=== PATIENT | male | born 1995 | race Caucasian/White ===

== ENCOUNTER 2022-01-20 14:15 | Outpatient (CLI) | payer OTHER ==
[2022-01-20 14:57] VITALS: BP 131/93
--- NOTE | 2022-01-20 14:57 | SLEEP CARE CONSULTATION ---
Information from patient questionnaire entered by Paul Jones MA. I have reviewed and concur with the information entered by Paul Jones MA. This document represents the service I personally performed and the decisions made by , Camille Marcelo ARNP. History of Present Illness Service Date and Time: 01/20/2022 1415 Reason for Visit: New patient (onset 03/2004, no prior,) Chief Complaint: reports: Unrefreshed sleep, Snoring, Fatigue, Frequent awakenings at night Date of Onset: years Usual bedtime: 1000 pm Time it takes to fall asleep: 30 minutes to 2 hours Snores at night: Yes Observed to quit breathing while asleep: No (no roommate) Number of times waking at night: 2-3 times Reasons for waking at night: reports: Snoring, Other (unknown reason). denies: Choking, Gasping for air Toss, Turn, or Twitch while sleeping: Yes Recalls having dreams: Yes Usually gets out of bed at: 0620; weekends wake up later Feels refreshed in the morning: No Morning headache: Yes (2 x a week; last 1-2 hours w/out meds) Sleepy or fatigued during the day: Yes Ever fallen asleep while driving: No Takes day naps: No Prior sleep studies: No Additional HPI information: I had the pleasure of seeing SHELDON CARLTON today regarding the possibility of him having a sleep disorder. His current complaints are fatigue, snoring, frequent night awakenings and unrefreshed sleep. He states he is not sleeping well, waking up at night and having trouble going back to sleep. He states he can take 30 minutes to 2 hours to fall asleep. He will wake up 2-3 times a night and can take 30 mins to 2 hrs to go back to sleep. His doctor thinks this may be due to depression. 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 Patient is Single and lives in . Have you smoked in the past 12 months: Yes (social only) Cigarettes per day (20/pack): 20 Years of smokin Quit date: 2015 Smoking Pack Years: 2.0 Alcohol use: Yes Alcohol amount and frequency: 1-2 x monthly Caffeine use: Yes Caffeine amount and frequency: 1 -2 week Family History Family history of sleep disordered breathing: No Family Hx Sleep Apnea: Sibling: Snoring Allergies and Home Medications Known drug allergies: No Home medication list reviewed: Yes Allergy and home medication list: Medications: Lexapro 20 mg daily Lidocaine patches for back, as needed Review of Systems Weight gain over past 5 years: 15 Cardiovascular: denies: high blood pressure Gastrointestinal: denies: heartburn Neurological: denies: headaches, head trauma Psychiatric: reports: anxiety, depression Ear/Nose/Throat: reports: wisdom teeth removed. denies: injury to nose, tonsillectomy Musculoskeletal: reports: back pain (from prolonged sitting) Physical Exam Vital signs obtained and entered by: Yue JONES CMA [facility] Blood Pressure: 131/93 (resp 18, pulse 79, right, ) Heart Rate: 89 O2 Saturation: 97 (cloth) Height: 5 ft 8 in Weight: 174 lb (uniform and boots) Body Mass Index: 26.4 BMI Classification: Overweight Neck circumference: 14 (inches) Mouth and throat: narrow oropharynx Soft palate: long Hard palate: arched Uvula: long, edematous Uvula visualization: 50% Mallampati Class II Tongue: enlarged in size with teeth breen on lateral edges Tonsils: 1+ Neck: normal w/o lymphadenopathy or thyromegaly Heart: regular rate and rhythm Lungs: clear bilaterally Impression and Plan 1. Suspected Obstructive Sleep Apnea-Hypopnea Syndrome, as suggested by a history of irregular snoring, morning headache, frequent awakening during the night, unrefreshed sleep, cognitive impairment, and excessive daytime sle epiness. Narrow oropharynx and obesity are common predisposing factors for obstructive sleep apnea-hypopnea syndrome. I recommend proceeding to polysomnography to confirm the diagnosis and to assess severity. If the patient has significant sleep disordered breathing, a manual CPAP titration study will also be performed to find the optimal treatment pressure. I informed the patient of what the sleep studies involve and after some discussion, obtained agreement to proceed. The pathophysiology of obstructive sleep apnea-hypopnea syndrome was discussed with the patient and health risks of cardiovascular and cerebrovascular disease if not treated. Risks of drowsy driving discussed in detail and patient advised to avoid long distance driving and to house mover helper at the first sign of drowsiness. Patient agreed to plan. * Schedule polysomnography * Avoid long distance driving or driving when feeling sleepy. * Avoid alcohol, sedative and muscle relaxant around bedtime. * Attempt to lose weight. * Review instructions provided by trained office staff on how to prepare for the sleep study. * Return for follow-up after sleep study completed. Counseling Topics: Weight loss health impact Visit Type: In Office Time Spent with Patient (minutes): 30 Provider Statement: I spent 100% of the Face to Face Visit with the patient with greater than 50% spent counseling the patient and coordination of care.
== END 2022-01-20 14:16 | disposition home or self-care (01) ==
LOC: SC 14:15
PROVIDERS: ATTEND Nurse Practitioner Family
DX: R06.83 Snoring (principal); G47.8 Other sleep disorders; R53.83 Other fatigue; F32.A Depression, unspecified; E66.3 Overweight; Z68.26 Body mass index [BMI] 26.0-26.9, adult; Z87.891 Personal history of nicotine dependence
CPT/HCPCS: 99203; 99212

== ENCOUNTER 2022-01-26 12:30 | Outpatient (CLI) | payer OTHER | END 2022-01-26 12:31 | disposition home or self-care (01) | LOC: SC 12:30 | PROVIDERS: ATTEND Nurse Practitioner Family | DX: R06.83 Snoring (principal); R53.83 Other fatigue | CPT/HCPCS: 95806 ==

== ENCOUNTER 2022-02-08 15:46 | Outpatient (CLI) | payer OTHER ==
[2022-02-08 16:02] VITALS: BP 127/95
--- NOTE | 2022-02-08 16:02 | SLEEP CARE CONSULTATION ---
Information from patient questionnaire entered by Paul Helton MA. I have reviewed and concur with the information entered by Paul Helton MA. This document represents the service I personally performed and the decisions made by Fozia bragg Caren J, ARNP. History of Present Illness Service Date and Time: 02/08/2022 1546 Initial [place] Sleepiness Scale score: 6 (2021) Current [place] Sleepiness Scale score: 10 (01/2022) Additional HPI information: SHELDON CARLTON returns for follow up and results of the recently performed home sleep study. The patient was informed of the following findings: no significant sleep disordered breathing with an average AHI of 2.3 and matilde oxygen saturation of 90%. I explained the pathophysiology behind obstructive sleep apnea. Patient does not have sleep apnea and was advised how weight gain could increase the risk of developing sleep apnea in the future. Patient counseled not drink alcohol less than 4 hours before bedtime as it can increase snoring and apnea. Patient was cautioned about risks of drowsy driving until sleepiness symptoms resolve. Sleep Study - Results Type of Sleep Study: Home sleep study (F/U HOME STUDY, 01/26/22 [facility],) Prior sleep studies: No Polysomnography/Home Sleep Study results: Physician Impression: The quality of the study is good. The length of the study is adequate (> 240 minutes). Please also see the tabulated and graphic data. 1. No significant sleep disordered breathing, with an AHI of 2.3/hr and matilde SaO2 of 90%. During the study, the patient had 13 apneas (13 obstructive, 0 central, 0 mixed) and 4 hypopneas. The longest episode lasted 61.0 seconds. The few respiratory events occurred more frequently during supine sleep (supine AHI was 3.4 and non-supine, 0.70). Allergies and Home Medications Known drug allergies: No Drug allergies reviewed: Yes Home medication list reviewed: Yes (no changes) Review of Systems Review of systems same as previous: Yes (no changes) Physical Exam Vital signs obtained and entered by: JHONY SOTO Blood Pressure: 127/95 (resp 18, pulse 88, right, ) Heart Rate: 80 O2 Saturation: 98 (cloth) Height: 5 ft 8 in Weight: 170 lb (uniform and boots) Body Mass Index: 25.8 BMI Classification: Overweight Impression and Plan 1. Suspected Obstructive Sleep Apnea-Hypopnea Syndrome, as suggested by a history of loud and irregular snoring, frequent awakening during the night, unrefreshed sleep, cognitive impairment, and excessive daytime sleepiness. Patient completed an HST but based upon his symptoms I recommend proceeding to polysomnography to confirm the diagnosis and to assess severity. I informed the patient of what the sleep studies involve and after some discussion, obtained agreement to proceed. The pathophysiology of obstructive sleep apnea-hypopnea syndrome was discussed with the patient and health risks of cardiovascular and cerebrovascular disease if not treated. Risks of drowsy driving discussed in detail and patient advised to avoid long distance driving and to post form remover at the first sign of drowsiness. Patient agreed to plan. * Schedule polysomnography * Avoid long distance driving or driving when feeling sleepy. * Avoid alcohol, sedative and muscle relaxant around bedtime. * Attempt to lose weight. * Review instructions provided by trained office staff on how to prepare for the sleep study. * Return for follow-up after sleep study completed. Visit Type: In Office Time Spent with Patient (minutes): 20 Provider Statement: I spent 100% of the Face to Face Visit with the patient with greater than 50% spent counseling the patient and coordination of care.
== END 2022-02-08 15:47 | disposition home or self-care (01) ==
LOC: SC 15:46
PROVIDERS: ATTEND Nurse Practitioner Family
DX: R06.83 Snoring (principal); G47.8 Other sleep disorders; G47.00 Insomnia, unspecified; R53.83 Other fatigue; F32.A Depression, unspecified; E66.3 Overweight; Z68.25 Body mass index [BMI] 25.0-25.9, adult
CPT/HCPCS: 99212; 99213

== ENCOUNTER 2022-02-20 19:46 | Outpatient (CLI) | payer OTHER | END 2022-02-20 19:47 | disposition home or self-care (01) | LOC: SC 19:46 | PROVIDERS: ATTEND Nurse Practitioner Family | DX: G47.8 Other sleep disorders (principal); G47.61 Periodic limb movement disorder | CPT/HCPCS: 95810 ==

== ENCOUNTER 2022-03-31 11:19 | Outpatient (CLI) | payer OTHER ==
[2022-03-31 12:03] VITALS: BP 128/89
--- NOTE | 2022-03-31 12:03 | SLEEP CARE CONSULTATION ---
Information from patient questionnaire entered by Paul Helton MA. I have reviewed and concur with the information entered by Paul Helton MA. This document represents the service I personally performed and the decisions made by , Camille Marcelo ARNP. History of Present Illness Service Date and Time: 03/31/2022 1119 Initial [place] Sleepiness Scale score: 6 (2021) Current [place] Sleepiness Scale score: 14 (03/31/22) Additional HPI information: SHELDON CARLTON returns for follow up and results of the recently performed polysomnography. I explained the pathophysiology behind obstructive sleep apnea. We then spent quite a bit of time discussing different treatment options. For mild obstructive sleep apnea, surgery and oral appliance are alternatives to nasal CPAP therapy but in moderate or severe cases, nasal CPAP is the most effective and reliable treatment. After some discussion, the patient opted to go with the nasal CPAP therapy. Nasal autoCPAP set at 4-15 cmH20 will be ordered with rationale explained. A manual titration study will be ordered if unable to find optimal pressure with office adjustments. I explained how CPAP machine works and what to expect when using the machine. Using CPAP every night in order to get used to it was emphasized. Patient advised to put CPAP mask on before getting into bed so as not to fall asleep without CPAP. To assist acclimation to CPAP use, it could also be used for a short time during day while reading or watching TV. The patient was instructed to call the CPAP supplier to discuss any mechanical problem that may occur. If the mask given is uncomfortable or is difficult to keep on through the night even with adjustment, contact the CPAP supplier as many will replace with another mask style if notified before 30 days. If snoring or perceives is not getting enough air or too much air from the machine, notify this office. Patient counseled not drink alcohol less than 4 hours before bedtime as it can increase snoring and apnea. Patient was cautioned about risks of drowsy driving until sleepiness symptoms resolve. Sleep Study - Results Type of Sleep Study: Polysomnography (F/U POLY, 02/20/22 [facility],) Prior sleep studies: No Polysomnography/Home Sleep Study results: IMPRESSION: The quality of the study is good. The patient had normal sleep efficiency. The sleep architecture was abnormal for sleep fragmentation and reduced amount of time spent in REM sleep. Respiratory monitoring showed evidence of upper airway resistance (AHI = 0.8; RDI = 9.8) and no hypoxia (matilde oxygen saturation of 90%). The patient slept adequately in supine position (supine AHI = 2.6; non- supine = 0.00). Snore was light in intensity. There was mild periodic leg movement of sleep not contributing to the sleep fragmentation. Cardiac rhythm was normal sinus rhythm occasional mild bradycardia (lowest heart rate = 39). No abnormal behavior (parasomnia) observed during the night. CONCLUSIONS and RECOMMENDATIONS: 1. Upper Airway Resistance Syndrome (ICD-10 G47.8), as suggested by the frequent respiratory related arousals and elevated RDI. A trial of positive airway pressure therapy is recommended given the above symptoms. 2. Periodic leg movement (ICD G47.61), mild, treatment may be indicated. Clinical correlation advised. Allergies and Home Medications Known drug allergies: No Drug allergies reviewed: Yes Home medication list reviewed: Yes (no changes) Review of Systems Review of systems same as previous: Yes (no changes) Physical Exam Vital signs obtained and entered by: JHONY SOTO Blood Pressure: 128/89 (RESP 20, PULSE 86, RIGHT) Cuff size: wrist Heart Rate: 86 O2 Saturation: 98 (CLOTH MASK) Height: 5 ft 8 in Weight: 173 lb (UNIFORM AND BOOTS) Weight change since last visit: BUILDING MUSCLE, BUT MAINTAINING, Body Mass Index: 26.3 BMI Classification: Overweight Impression and Plan 1. Upper Airway Resistance Syndrome, with RDI of 9.8 and with lowest oxygen saturation of 90%. Obviously this is the cause of the patients symptoms of unrefreshed sleep, and excessive daytime sleepiness. Positive pressure therapy could benefit anxiety and depression. As mentioned above, the patient will be started on nasal autoCPAP therapy with pressure set at 4-15 cmH2O. Compliance guidelines also reviewed. A copy of compliance guidelines will be given for reference at check out. 2. Periodic limb movement, mild, that did not fragment patients sleep. Periodic limb movement of sleep (PLMS) is characterized by episodes of repetitive limb movements that occur during sleep and usually involve the lower limbs. The etiology is unknown. Caffeine can also aggravate PLMS and should be avoided. Sleep hygiene methods can also improve sleep as well as lifestyle changes such as regular exercise. Patient was advised that no treatment is needed at this time. If symptoms increase, then further evaluation is indicated. * Nasal auto CPAP therapy, pressure at 4-15 cm H2O. * Attempt to lose weight. * Avoid alcohol consumption near bedtime. * Avoid supine sleep until using CPAP. * The patient is again cautioned about driving until sleepiness completely resolves. * Return one month after CPAP obtained. I will assess response to therapy and compliance at that time. Counseling Topics: Weight loss health impact Visit Type: In Office Time Spent with Patient (minutes): 21 Provider Statement: I spent 100% of the Face to Face Visit with the patient with greater than 50% spent counseling the patient and coordination of care.
== END 2022-03-31 11:20 | disposition home or self-care (01) ==
LOC: SC 11:19
PROVIDERS: ATTEND Nurse Practitioner Family
DX: G47.8 Other sleep disorders (principal); G47.61 Periodic limb movement disorder
CPT/HCPCS: 99212; 99213